=== PATIENT | male | born 1995 | race Caucasian/White ===

== ENCOUNTER 2019-08-08 18:47 | Emergency (ER) | payer OTHER ==
[~2019-08-08] VITALS: Ht 172.7 cm; Wt 61.2 kg
[2019-08-08 19:00] VITALS: BP 129/63
[2019-08-08] MEDS ORDERED: ALBUTEROL SULF8.5 GM INH (19:00)
[2019-08-08] MEDS ORDERED: SERTRALINE HCL50 MG ORAL (19:01)
[2019-08-08] MEDS ORDERED: VIVITROL380 MG IM (19:01)
--- NOTE | 2019-08-08 19:10 | NUR ---
ED Nurse Note: Walk-in patient with complaints of right sided abdominal pain 05/19.
[2019-08-08] MEDS ORDERED: Omnipaque-300 100ml vial INJ PRN (19:15)
--- NOTE | 2019-08-08 19:18 | Emergency Room Report ---
History of Present Illness General Chief Complaint: Abdominal Pain Source: Patient Present Illness HPI Disclaimer: Please note that this report is being documented using [employer] technology. This can lead to erroneous entry secondary to incorrect interpretation by the dictating instrument. HPI: 23-year-old male with history of hepatitis C, IV drug abuse and alcohol abuse presents for evaluation of abdominal pain and hematemesis. Patient states he experienced some diffuse abdominal pain earlier this morning and 2 episodes of emesis. He had some blood-tinged sputum after each episode. He reports recent diarrhea and diffuse abdominal cramping. He reports chills but denies fevers. He states the abdominal pain is now radiating up into his chest causing some sharp chest pain on bending and twisting motions. Denies shortness of breath. Does report recent cough with some phlegm production. His roommate is at home with a "flulike illness." Patient has been in drug rehabilitation for 1 month and states he has had no drugs or alcohol since discharge. He is on Vivitrol. No history of intra-abdominal surgeries. PMH: Hepatitis C, IV drug abuse, alcohol abuse, unspecified cardiac disease PSH: Denies Allergies: Penicillin Social Hx: IV drug abuse, alcohol abuse currently in remission Allergies: Coded Allergies: AMOXICILLIN (Verified Allergy, Unknown, 08/08/19) PENICILLINS (Verified Allergy, Unknown, 08/08/19) Nursing Documentation-PMH Past Medical History: No History, Except For Hx Asthma: Yes Review of Systems All Other Systems: negative except mentioned in HPI Physical Exam Vital Signs Date Time Temp Pulse Resp B/P (MAP) Pulse Ox O2 Delivery O2 Flow Rate FiO2 08/08/19 18:57 98.8 64 18 129/63 (85) 100 Room Air General: Awake and alert, appears fatigued and uncomfortable HEENT: NC/AT. EOMI. Cardiovascular: RRR. S1 and S2 normal. No murmur appreciated Resp: Normal work of breathing. No cough, wheezing or crackles appreciated Abdomen: Abdomen is soft, nondistended. Tenderness in the periumbilical region and right lower quadrant as well as the right upper quadrant. There is rebound tenderness, positive Rovsing sign, positive obturator sign, positive psoas sign. Positive Rao sign. Mild CVA tenderness on the right. Negative on left. No masses are appreciable. Skin: Intact. No abrasions, laceration or rash over the exposed skin MSK: Normal tone and bulk. Moving all extremities. No obvious deformity. Neuro: Awake and alert. Mentating appropriately. Medical Decision Making Diagnostic Impression: Primary Impression: Abdominal pain Additional Impressions: Vomiting Constipation ER Course This is a 23-year-old male presenting for evaluation of abdominal pain, vomiting , diarrhea as well as mild chest pain. Differential includes was not limited to appendicitis, cholecystitis, pancreatitis, gastritis, bowel obstruction, ACS , arrhythmia, muscular skeletal chest pain, viral syndrome, UTI, pyelonephritis. We will start broad metabolic and infectious work-up and send patient for CT scan of the abdomen with IV contrast. We will start IV fluids. Antiemetics ordered. Laboratory Tests Test 08/08/19 19:05 08/08/19 19:36 Urine Color Yellow Urine Appearance Slightly cloudy Urine pH 6 (4.5-8.0) Urine Specific [place] 1.030 (1.005-1.035) Urine Protein 1+ (NEGATIVE) H Urine Glucose (UA) Negative (NEGATIVE) Urine Ketones Negative (NEGATIVE) Urine Blood Negative (NEGATIVE) Urine Nitrite Negative (NEGATIVE) Urine Bilirubin Negative (NEGATIVE) Urine Urobilinogen 1 MG/DL (0.0-1.0) H Urine Leukocyte Esterase Negative (NEGATIVE) Urine RBC 0 /HPF (0 - 0) Urine WBC 0-2 /HPF (0 - 0) Urine Squamous Epithelial Cells Occasional /LPF Urine Bacteria Few /HPF (NONE) Urine Mucus Moderate /LPF (NONE/OCC) H White Blood Count 10.2 K/UL (4.8-10.8) Red Blood Count 5.05 M/UL (4.70-6.10) Hemoglobin 14.8 G/DL (14.2-18.0) Hematocrit 41.3 % (42.0-52.0) L Mean Corpuscular Volume 82 FL (80-99) Mean Corpuscular Hemoglobin 29.3 PG (27.0-31.0) Mean Corpuscular Hemoglobin Concent 35.8 G/DL (32.0-36.0) Red Cell Distribution Width 10.1 % (11.6-14.8) L Platelet Count 258 K/UL (150-450) Mean Platelet Volume 6.3 FL (6.5-10.1) L Neutrophils (%) (Auto) 75.2 % (45.0-75.0) H Lymphocytes (%) (Auto) 18.3 % (20.0-45.0) L Monocytes (%) (Auto) 5.1 % (1.0-10.0) Eosinophils (%) (Auto) 0.6 % (0.0-3.0) Basophils (%) (Auto) 0.9 % (0.0-2.0) Prothrombin Time 13.4 SEC (9.30-11.50) H Prothrombin Time INR 1.3 (0.9-1.1) H PTT 31 SEC (23-33) Sodium Level 146 MMOL/L (136-145) H Potassium Level 3.3 MMOL/L (3.5-5.1) L Chloride Level 107 MMOL/L (98-107) Carbon Dioxide Level 29 MMOL/L (21-32) Anion Gap 10 mmol/L (5-15) Blood Urea Nitrogen 10 mg/dL (7-18) Creatinine 1.0 MG/DL (0.55-1.30) Estimate Glomerular Filtration Rate > 60 mL/min (>60) Glucose Level 105 MG/DL (74-106) Calcium Level 9.2 MG/DL (8.5-10.1) Total Bilirubin 0.5 MG/DL (0.2-1.0) Aspartate Amino Transferase (AST) 28 U/L (15-37) Alanine Aminotransferase (ALT) 72 U/L (12-78) Alkaline Phosphatase 54 U/L (46-116) Total Protein 6.7 G/DL (6.4-8.2) Albumin 4.0 G/DL (3.4-5.0) Globulin 2.7 g/dL Albumin/Globulin Ratio 1.5 (1.0-2.7) Lipase 112 U/L (73-393) EKG Diagnostic Results EKG Time: 19:25 Rate: normal Rhythm: NSR ST Segments: no acute changes Other Impression Sinus rhythm, normal axis, normal intervals, no ST segment changes. Rhythm Strip Diag. Results Rhythm Strip Time: 19:25 EP Interpretation: yes Rate: 60s Rhythm: NSR, no PVC's, no ectopy Chest X-Ray Diagnostic Results Chest X-Ray Diagnostic Results : Chest X-Ray Ordered: Yes # of Views/Limited/Complete: 1 View Indication: Shortness of Breath EP Interpretation: Yes Interpretation: no consolidation, no effusion, no pneumothorax, no acute cardiopulmonary disease Impression: No acute disease Electronically Signed by: Electronically signed by Dr. Julio House CT/MRI/US Diagnostic Results CT/MRI/US Diagnostic Results : Impression Preliminary Findings Only See Final Report For Complete Findings CT ABDOMEN & PELVIS With Contrast: Motion degraded study. Moderate splenomegaly with the spleen measuring approximately 13 x 5.5 cm. Mild hepatomegaly. There is moderate periportal edema. Periportal edema can be seen with intrinsic liver disease including but not limited to hepatitis. Obstruction of lymphatics also a significant consideration. Remaining solid abdominal organs demonstrate no acute findings. Lower GI tract demonstrates no obstruction, focal wall thickening or pneumatosis. The appendix was not visualized. Negative for pneumoperitoneum or abdominal/pelvic fluid collections. Urinary bladder is grossly unremarkable. Radiologist: Gurpreet Urban MD Study ready at 20:57 and initial results transmitted at 21:02 Reevaluation Time: 21:47 Last Vital Signs Date Time Temp Pulse Resp B/P (MAP) Pulse Ox O2 Delivery O2 Flow Rate FiO2 08/08/19 18:57 98.8 64 18 129/63 (85) 100 Room Air Reevaluation Impression Labs have returned largely within normal limits. No significant white count, lipase negative. No urinary tract infection, normal renal function with normal electrolytes. CT scan did not show evidence of acute appendicitis, obstruction , other significant pathology aside from enlarged spleen, enlarged liver consistent with the patient's history which he states he is well aware of. There is significant stool burden. No evidence of pneumonia on chest x-ray or pneumothorax. There is a slight congestion in the lower lobes bilaterally which may represent a viral syndrome. Overall, I believe the patient likely does have a viral syndrome given his constellation of symptoms and will be treated symptomatically as an outpatient. He remains afebrile with stable vital signs and his abdominal pain is improved after receiving IV pain medication and antiemetics. He will be discharged with additional doses of Zofran as well as famotidine and MiraLAX. He will follow-up with 1 of the clinics listed in his discharge paperwork as he does not have a PMD. We discussed reasons to return to the emergency department. He understands and agrees with this treatment plan was discharged home Disposition: HOME, SELF-CARE Condition: Improved Scripts Famotidine (FAMOTIDINE) 20 Mg Tablet 20 MG ORAL DAILY, #30 TAB 0 Refills Prov: Julio House MD 08/08/19 Polyethylene Glycol 3350* (MIRALAX*) 17 Gm Powd.pack 17 GM ORAL DAILY for 7 Days, #14 PACKET Prov: Julio House MD 08/08/19 Ondansetron Odt* (ZOFRAN ODT*) 4 Mg Tab.rapdis 4 MG BC EVERY 6 HOURS PRN for Nausea & Vomiting, #20 TAB 0 Refills Prov: Julio House MD 08/08/19 Julio House MD Aug 08, 2019 19:18
--- NOTE | 2019-08-08 19:26 | NUR ---
HAND-OFF: Report given to Alicia DUVALL.
--- NOTE | 2019-08-08 19:35 | NUR ---
ED Nurse Note: Consent form for CT with contrast signed.
[2019-08-08 19:48] LABS: BASOPHILS % (AUTO) 0.9 % (0.0-2.0); EOSINOPHILS % (AUTO) 0.6 % (0.0-3.0); HEMATOCRIT 41.3 % (42.0-52.0); HEMOGLOBIN 14.8 G/DL (14.2-18.0); LYMPHOCYTES % (AUTO) 18.3 % (20.0-45.0); MEAN CORPUSCULAR VOLUME 82 FL (80-99); MONOCYTES % (AUTO) 5.1 % (1.0-10.0); NEUTROPHILS % (AUTO) 75.2 % (45.0-75.0); PLATELET COUNT 258 K/UL (150-450); RED BLOOD COUNT 5.05 M/UL (4.70-6.10); RED CELL DISTRIBUTION WIDTH 10.1 % (11.6-14.8); WHITE BLOOD COUNT 10.2 K/UL (4.8-10.8)
[2019-08-08 19:51] LABS: APPEARANCE,URINE SLIGHTLY CLOUDY; BILIRUBIN, URINE NEGATIVE (NEGATIVE); GLUCOSE, URINE (UA) NEGATIVE (NEGATIVE); KETONES,URINE NEGATIVE (NEGATIVE); LEUKOCYTE ESTERASE ,URINE NEGATIVE (NEGATIVE); NITRITE,URINE NEGATIVE (NEGATIVE); PH,URINE 6 (4.5-8.0); PROTEIN,URINE 1+ (NEGATIVE); UROBILINOGEN,URINE 1 MG/DL (0.0-1.0)
[2019-08-08 19:53] LABS: COLOR,URINE YELLOW
[2019-08-08 19:56] LABS: INR 1.3 (0.9-1.1)
[2019-08-08 19:59] LABS: ANION GAP 10 mmol/L (5-15); BLOOD UREA NITROGEN 10 mg/dL (7-18); CALCIUM 9.2 MG/DL (8.5-10.1); CARBON DIOXIDE 29 MMOL/L (21-32); CHLORIDE 107 MMOL/L (98-107); POTASSIUM 3.3 MMOL/L (3.5-5.1); SODIUM 146 MMOL/L (136-145)
[2019-08-08 20:04] LABS: ALANINE AMINOTRANSFERASE 72 U/L (12-78); ALBUMIN/GLOBULIN RATIO 1.5 (1.0-2.7); ALKALINE PHOSPHATASE 54 U/L (46-116); ASPARTATE AMINO TRANSFERASE 28 U/L (15-37); BILIRUBIN,TOTAL 0.5 MG/DL (0.2-1.0)
--- NOTE | 2019-08-08 20:15 | NUR ---
ED Nurse Note: Patient resting comfortably, with no s/s of acute distress.
--- NOTE | 2019-08-08 21:03 | Diagnostic Imaging Report ---
Indication: Abdominal pain Technique: Continuous helical transaxial imaging of the abdomen and pelvis was obtained from the lung bases to the pubic symphysis during intravenous contrast administration. Coronal 2-D reformats were also obtained. Study obtained in a Siemens sensation [address] Automatic Exposure Control was utilized. Total Dose length Product (DLP): 641.[address] Dose Index Volume (CTDIvol): 11.1 mGy Comparison: None Findings: Lung bases are clear. The spleen is prominent size measuring 12 x 12 x 7 cm. There is periportal edema which is nonspecific. Gallbladder is contracted. Kidneys enhance normally. There is no free fluid. Bowel gas pattern is nonobstructive. Pancreas and adrenal glands are unremarkable. Limitation on this study due to the nonadministration of oral contrast. No adenopathy appreciated. Osseous structures are unremarkable. IMPRESSION: Splenomegaly. Periportal edema nonspecific. The CT scanner at [facility] is accredited by the [employer] and the scans are performed using dose optimization techniques as appropriate to a performed exam including Automatic Exposure control.
[2019-08-08] MEDS ORDERED: MIRALAX17 G2 ORAL (21:26)
[2019-08-08] MEDS ORDERED: ONDANSETRON ODT4 MG BC (21:26)
[2019-08-08] MEDS ORDERED: FAMOTIDINE20 MG ORAL (21:26)
--- NOTE | 2019-08-08 21:35 | NUR ---
ED Nurse Note: Radiology at bedside.
[2019-08-08 21:45] VITALS: BP 129/63
--- NOTE | 2019-08-08 21:45 | NUR ---
ED Nurse Note: Patient cleared for discharge by ERMD with no s/s of acute distress. Patient ID removed, IV removed. Patient verbalized understanding of discharge instructions and departed with all belongings.
--- NOTE | 2019-08-09 11:21 | Diagnostic Imaging Report ---
Indication: Cough Comparison: None A single view chest radiograph was obtained. Findings: Cardiomediastinal appearance is within normal limits for age. The lungs are clear. Pulmonary vascularity is appropriate. The diaphragmatic contour is smooth and costophrenic angles are sharp. No pleural effusions are identified. The bones are unremarkable. Impression: No acute findings
--- NOTE | 2019-08-10 15:21 | Cardiology Report ---
APPROVED REPORT EKG Measurement Heart [id number] Normal sinus rhythm with sinus arrhythmia Normal ECG
== END 2019-08-08 21:45 | disposition home or self-care (01) ==
LOC: EMR 19:20
DX: R10.9 Unspecified abdominal pain (principal); R11.10 Vomiting, unspecified; K59.00 Constipation, unspecified; J45.909 Unspecified asthma, uncomplicated; Z88.1 Allergy status to other antibiotic agents; R06.02 Shortness of breath; B19.20 Unspecified viral hepatitis C without hepatic coma
CPT/HCPCS: 36415; 71045; 74177; 80053; 81003; 83690; 85025; 85610; 85730; 86850; 86900; 86901; 93005; 96361; 96374; 99284; J2405; Q9967; J7030